=== PATIENT | male | born 1970 | race African-American/Black ===

== ENCOUNTER → 2017-11-10 | Emergency (ER) | payer OTHER ==
[~2017-11-10] VITALS: Ht 193 cm; Wt 115.7 kg
[~2017-11-10] MED LIST: INTESTINEX1 CA1 PO; KETO10TA2 PO; MEDROLPACK PO; NABUMETONE750 MG PO; ORPH100T PO; ULTRACET PO
== END | disposition home or self-care (01) ==
LOC: ER 11:48
DX: B34.9 Viral infection, unspecified (principal)

== ENCOUNTER 2019-02-05 14:11 | Emergency (ER) | payer OTHER ==
[~2019-02-05] VITALS: Ht 193 cm; Wt 111.1 kg
== END 2019-02-05 16:11 | disposition home or self-care (01) ==
LOC: ER 14:11
DX: M25.562 Pain in left knee (principal)

== ENCOUNTER 2019-03-10 10:34 | Emergency (ER) | payer OTHER ==
[~2019-03-10] VITALS: Ht 193 cm; Wt 111.1 kg
== END 2019-03-10 12:14 | disposition home or self-care (01) ==
LOC: ER 10:34
DX: B34.9 Viral infection, unspecified (principal)

== ENCOUNTER 2022-07-15 06:32 | Emergency (ER) | payer OTHER ==
[~2022-07-15] VITALS: Ht 195.6 cm; Wt 113.4 kg
== END 2022-07-15 10:57 | disposition home or self-care (01) ==
LOC: ER 06:32
DX: K29.70 Gastritis, unspecified, without bleeding (principal); Z88.2 Allergy status to sulfonamides; Z88.0 Allergy status to penicillin

== ENCOUNTER 2022-10-21 12:04 | Emergency (ER) | payer OTHER ==
[~2022-10-21] VITALS: Ht 190.5 cm; Wt 113.4 kg
== END 2022-10-21 18:17 | disposition home or self-care (01) ==
LOC: ER 12:04
DX: I10 Essential (primary) hypertension (principal)

== ENCOUNTER 2024-10-26 21:28 | Emergency (ER) | payer OTHER ==
[~2024-10-26] VITALS: Ht 193 cm; Wt 113.4 kg
[2024-10-26] MEDS ORDERED: VALSARTAN80 MG PO (21:43)
[2024-10-26] MEDS ORDERED: KETOROLAC TROMETHAMINE 60 MG VIAL IM ONE ×2 (22:11→22:15)
[2024-10-26] MEDS ORDERED: CEFTRIAXONE SODIUM 1,000 MG VIAL ONE (22:12)
[2024-10-26] MEDS ORDERED: CEFTRIAXONE SODIUM 1,000 MG VIAL IM ONE (22:15)
[2024-10-26] MEDS ORDERED: DUI500 PO (22:24)
== END 2024-10-26 22:38 | disposition home or self-care (01) ==
LOC: ER 21:28
DX: H66.92 Otitis media, unspecified, left ear (principal); Z88.0 Allergy status to penicillin; Z88.2 Allergy status to sulfonamides; I10 Essential (primary) hypertension

== ENCOUNTER 2025-01-22 14:46 | Emergency (ER) | payer OTHER ==
[~2025-01-22] VITALS: Ht 193 cm; Wt 113.4 kg
[~2025-01-22 14:46] MED LIST changes: +DUI500 PO; +VALSARTAN80 MG PO
[2025-01-22] MEDS ORDERED: KETOROLAC TROMETHAMINE 30 MG VIAL IM STA (16:42)
[2025-01-22] MEDS ORDERED: KETOROLAC TROMETHAMINE 30 MG VIAL ONE ×2 (17:08→17:43)
== END 2025-01-22 18:24 | disposition home or self-care (01) ==
LOC: ER 14:47
DX: M25.562 Pain in left knee (principal); Z88.0 Allergy status to penicillin; Z88.8 Allergy status to other drugs, medicaments and biological substances